=== PATIENT | male | born 1965 | race Caucasian/White ===

== ENCOUNTER → 2017-02-20 | Outpatient (CLI) | payer MEDICAID ==
--- NOTE | ~2017-02-20 | US5 ---
[facility] A Service of [facility] RADIOLOGY TEXT RESULTS PATIENT: STEPHAN VILLANUEVA JR LOCATION: [facility] : 69 UNIT #: [id number] AGE: [address]: Trent Aden MD SEX: M ORDER DR: [id number] [facility] [address] [place], [place] [address] [id number] O MR#: [id number] Acc #: [id number] NAME: STEPHAN VILLANUEVA : 1965 SEX: M STUDY DATE/TIME: 02/20/2017 7:50 UNIT: US ROOM: STUDY DESCRIPTION: US Abdominal Complete Attending Physician: Trent Aden III, M.D. Referring Physician: Trent Aden III, M.D. Ordering Physician: Trent Aden III, M.D. Primary Care Physician: Thomas Bishop M.D. MEDICAL IMAGING REPORT This report is preliminary unless electronic signature is present EXAM Abdominal ultrasound INDICATIONS Generalized abdominal pain for the past 2 months. Hepatitis C. Observation for cirrhosis and so carcinoma. PROCEDURE Jiménez-scale and Doppler imaging of the abdomen. COMPARISON: CT from 07/25/2016 FINDINGS Submitted images of abdominal aorta and inferior vena cava unremarkable. Visualized portions of pancreas unremarkable but portions of the body and tail obscured. The liver has increased echotexture. No liver mass seen on submitted images. Liver measures 16.3 cm. The right kidney measures 11.2 cm. Uncomplicated cholelithiasis. Common duct measures 3 mm. There is a 2.1 cm cyst in the left kidney. Left kidney measures 9.8 cm. The left renal cyst has some internal debris with posterior shadowing, possibly could represents some small stones. The spleen measures 9 cm. IMPRESSION 1. Increasing coarsened hepatic echotexture in keeping with the steatosis shown on the previous CT. No liver mass seen by ultrasound. 2. Uncomplicated cholelithiasis. 3. There is a 2.1 cm cystic lesion left kidney that has some internal debris and posterior parenchymal artifact possibly representing small stones. Dictated by... [facility] A Service of [facility] RADIOLOGY TEXT RESULTS PATIENT: STEPHAN VILLANUEVA JR LOCATION: [facility] : 69 UNIT #: [id number] AGE: [address]: Trent Aden MD SEX: M ORDER DR: Blue Hurtado M.D. THIS IS AN ELECTRONICALLY VERIFIED REPORT Blue Hurtado M.D. at 02/21/2017 7:11 AM MYRANDA/andreia TD: 02/20/2017 14:11 JOB #: [id number] MEDICAL IMAGING REPORT Page 1 of 1 COPY
== END | disposition home or self-care (01) ==
LOC: CGUS 07:35
DX: B18.2 Chronic viral hepatitis C (principal); K80.20 Calculus of gallbladder without cholecystitis without obstruction; N28.89 Other specified disorders of kidney and ureter
CPT/HCPCS: 76700

== ENCOUNTER 2017-04-14 23:09 | Emergency (ER) | payer MEDICAID ==
--- NOTE | ~2017-04-14 | CT71 ---
[facility] A Service of [facility] RADIOLOGY TEXT RESULTS PATIENT: STEPHAN VILLANUEVA JR LOCATION: [facility] : 69 UNIT #: [id number] AGE: [address]: Chelsie Cortez APRN SEX: M ORDER DR: [id number] [facility] [address] [place], [place] [address] [id number] E MR#: [id number] Acc #: [id number] NAME: STEPHAN VILLANUEVA JR : 1965 SEX: M STUDY DATE/TIME: 04/15/2017 3:52 UNIT: [facility] ROOM: STUDY DESCRIPTION: CT Head Wo Contrast Attending Physician: Chelsie Cortez A.P.R.N. Ordering Physician: Chelsie Cortez A.P.R.N. Primary Care Physician: Thomas Bishop M.D. MEDICAL IMAGING REPORT This report is preliminary unless electronic signature is present EXAM CT head, noncontrast, 04/15/2017. HISTORY 51-year-old male in the ED complaining of headache and weakness after a fall [address] examination of the head was performed without IV contrast. This CT exam was performed with one or more of the following radiation dose reduction techniques: automatic exposure control, adjustment of mA and/or kV according to patient size, and iterative reconstruction. FINDINGS No acute intracranial abnormality is identified. No evidence of intracranial hemorrhage, mass, mass effect, cerebral edema or hydrocephalus. IMPRESSION Negative head CT examination. Dictated by... Juan Carlos Kilgore M.D. THIS IS AN ELECTRONICALLY VERIFIED REPORT Juan Carlos Kilgore M.D. at 04/15/2017 9:54 PM RGW/jarethw TD: 04/15/2017 14:17 [facility] A Service of [facility] RADIOLOGY TEXT RESULTS PATIENT: STEPHAN VILLANUEVA JR LOCATION: [facility] : 69 UNIT #: [id number] AGE: [address]: Chelsie Cortez APRN SEX: M ORDER DR: JOB #: [id number] MEDICAL IMAGING REPORT Page 1 of 1 COPY
--- NOTE | ~2017-04-14 | CR173 ---
[facility] A Service of [facility] & [facility] RADIOLOGY TEXT RESULTS PATIENT: STEPHAN VILLANUEVA JR LOCATION: [facility] : 69 UNIT #: [id number] AGE: [address]: Chelsie Cortez APRN SEX: M ORDER DR: [id number] [facility] [address] [place], [place] [address] [id number] E MR#: [id number] Acc #: [id number] NAME: STEPHAN VILLANUEVA JR : 1965 SEX: M STUDY DATE/TIME: 04/15/2017 2:59 UNIT: [facility] ROOM: STUDY DESCRIPTION: CR Knee 3 Views Rt Attending Physician: Chelsie Cortez A.P.R.N. Ordering Physician: Chelsie Cortez A.P.R.N. Primary Care Physician: Thomas Bishop M.D. MEDICAL IMAGING REPORT This report is preliminary unless electronic signature is present EXAM Right knee, 04/15/2017. HISTORY 51-year-old male in the ED complaining of right knee pain after a fall 2 days ago. TECHNIQUE Three-view right knee series. FINDINGS The examination is negative. No fracture, dislocation, arthropathy, or other osseous abnormality. No visible joint effusion. IMPRESSION Negative right knee series. Dictated by... Juan Carlos Kilgore M.D. THIS IS AN ELECTRONICALLY VERIFIED REPORT Juan Carlos Kilgore M.D. at 04/15/2017 9:54 PM SANDRAW/shana TD: 04/15/2017 13:55 JOB #: [id number] MEDICAL IMAGING REPORT Page 1 of 1 COPY
--- NOTE | ~2017-04-14 | EKG ---
PATIENT: STEPHAN VILLANUEVA UNIT #: [id number] Ventricular Rate: 57 BPM Atrial Rate: 57 BPM P-R Interval: 182 ms QRS Duration: 84 ms Q-T Interval: 420 ms QTC Calculation(Bezet): 408 ms P [place]: 67 degrees Calculated R [place]: 68 degrees Calculated T [place]: 68 degrees Diagnosis Line: Sinus bradycardia Diagnosis Line: Early repolarization Diagnosis Line: Otherwise normal ECG Diagnosis Line: Diagnosis Line: Confirmed by MINNIE DOMINGUEZ MD ([id number]) on Diagnosis Line: 04/15/2017 2:03:09 PM INTERPRETING MD: DINA
[2017-04-15 03:23] LABS: BASOPHIL% 0.5 % (0-2.5); EOSINOPHIL# 0.2 X10e3 (0-0.7); EOSINOPHIL% 3.7 % (0.0-7.0); HEMOGLOBIN 16.2 gm/dL (13.0-16.0); LYMPHOCYTE# 2.4 X10e3 (1.0-3.5); MEAN CELL VOLUME 95.1 FL (83-96); MEAN CORPUSCULAR HEMOGLOBIN 32.2 PG (28-34); MEAN CORPUSCULAR HGB CONC 33.8 g/dL (30-36); MEAN PLATELET VOLUME 8.8 FL (6.5-11.5); MONOCYTE# 0.5 X10e3 (0-1.0); NEUTROPHIL# 1.5 X10e3 (1.5-7.1); NEUTROPHIL% 32.8 % (40-75); PLATELET COUNT 173 X10e3 (140-420); RED BLOOD COUNT 5.05 X10e (3.90-5.60); RED CELL DISTRIBUTION WIDTH 12.6 % (11.0-15.5); WHITE BLOOD COUNT 4.6 X10e3 (4.0-10.5)
[2017-04-15 03:27] LABS: DIFF IND YES
[2017-04-15 03:45] LABS: PARTIAL THROMBOPLASTIN TIME 29.6 SECONDS (23.5-31.3); PROTHROMBIN TIME (PATIENT) 10.7 SECONDS (9.6-11.5)
[2017-04-15 03:46] LABS: ALBUMIN SERUM 3.9 g/dL (3.5-5.0); BILIRUBIN, DIRECT 0.2 mg/dL (0.0-0.2); BILIRUBIN,INDIRECT 0.4 mg/dL (0.0-0.9); BILIRUBIN,TOTAL 0.6 mg/dL (0.2-2.0); CALCIUM SERUM 8.6 mg/dL (8.4-10.2); PROTEIN TOTAL SERUM 7.5 g/dL (6.0-8.3)
[2017-04-15 03:53] LABS: URINE SOURCE CLEAN CATCH
[2017-04-15 04:00] LABS: URINE APPEARANCE CLEAR; URINE BILIRUBIN NEG (NEG); URINE BLOOD NEG (NEG); URINE COLOR YELLOW; URINE GLUCOSE NEG (NEG); URINE KETONE NEG (NEG); URINE LEUKOCYTE ESTERASE NEG (NEG); URINE NITRATE NEG (NEG); URINE PH 5.5 (5-8); URINE PROTEIN NEG (NEG); URINE SPECIFIC GRAVITY 1.017 (1.003-1.035)
[2017-04-15 04:04] LABS: CULTURE INDICATED? NO
[2017-04-15 04:20] LABS: DIFFERENTIAL COMMENT FEWATYPLYMPHS; PLATELET ESTIMATE NORMAL (NORMAL)
== END 2017-04-15 06:10 | disposition home or self-care (01) ==
LOC: CED 23:09
PROVIDERS: Nurse Practitioner
DX: S80.01XA Contusion of right knee, initial encounter (principal); F10.129 Alcohol abuse with intoxication, unspecified; F17.210 Nicotine dependence, cigarettes, uncomplicated; Z88.0 Allergy status to penicillin; W18.30XA Fall on same level, unspecified, initial encounter; Y93.01 Activity, walking, marching and hiking; Y92.410 Unspecified street and highway as the place of occurrence of the external cause
CPT/HCPCS: 29530; 36415; 70450; 73562; 80048; 80076; 81003; 82150; 83690; 85025; 85610; 85730; 93005; 96360; 99284; G0480

== ENCOUNTER → 2017-08-01 | Outpatient (CLI) | payer MEDICAID ==
--- NOTE | ~2017-08-01 | US5 ---
[facility] A Service of [facility] RADIOLOGY TEXT RESULTS PATIENT: STEPHAN VILLANUEVA JR LOCATION: [facility] : 69 UNIT #: [id number] AGE: [address]: Trent Aden MD SEX: M ORDER DR: [id number] [facility] [address] [place], [place] [address] [id number] O MR#: [id number] Acc #: [id number] NAME: STEPHAN VILLANUEVA : 1965 SEX: M STUDY DATE/TIME: 08/01/2017 10:14 UNIT: [facility] ROOM: STUDY DESCRIPTION: US Abdominal Complete Attending Physician: Trent Aden III, M.D. Referring Physician: Trent Aden III, M.D. Ordering Physician: Trent Aden III, M.D. Primary Care Physician: Thomas Bishop M.D. MEDICAL IMAGING REPORT This report is preliminary unless electronic signature is present EXAM Complete abdominal ultrasound 08/01/2017 HISTORY Hepatitis C virus. Abdominal pain for 5 years. No history of treatment for hepatitis. Myocardial infarction 16 years ago. COMPARISON Complete abdominal ultrasound 02/20/2017, 07/29/2016. CT abdomen and pelvis 07/25/2016. FINDINGS The abdominal aorta measures up to 2.3 cm proximal segment, 1.9 cm mid-segment, 1.8 cm mid-segment and demonstrates normal Doppler flow. Intrahepatic IVC demonstrates normal color and spectral Doppler flow. The pancreas is partially obscured by bowel gas but the visualized pancreas appears normal. No ascites is seen. Liver demonstrates a coarsened echotexture corresponding to hepatic steatosis seen on the previous CT. No focal liver lesion is identified, the liver does not appear frankly cirrhotic. The main portal vein patent is patent. Liver size is within normal limits, 16.4 cm in the long axis. Common bile duct caliber is normal, 5 mm. No intrahepatic biliary ductal dilation is seen. The right kidney measures 11.6 cm and left kidney measures 10 cm in length. The cystic lesion at the left lower renal pole measures approximately 2 cm and is unchanged from the prior examination. It continues to demonstrate some low-level internal echoes thought most likely to represent hemorrhagic or proteinaceous debris, but no definite solid nodular components are identified within this cystic lesion. No right or left hydronephrosis is identified. Spleen size is normal, 9 cm. [facility]. [facility] A Service of [facility] RADIOLOGY TEXT RESULTS PATIENT: STEPHAN VILLANUEVA JR LOCATION: [facility] : 69 UNIT #: [id number] AGE: [address]: Trent Aden MD SEX: M ORDER DR: Multiple shadowing gallstones are present without pericholecystic inflammation or cyst or biliary ductal dilation. IMPRESSION 1. Coarsened hepatic echotexture corresponds to hepatic steatosis seen on the 07/25/2016 CT. No gross cirrhotic liver morphology, and no focal liver lesion is seen. 2. No ascites. 3. Uncomplicated cholelithiasis. No abnormal biliary dilation. 4. Mildly complex 2 cm left lower renal pole cyst, without significant change from 02/20/2017. 5. Remainder of examination is within normal limits. Dictated by... Alexandra Gunderson M.D. THIS IS AN ELECTRONICALLY VERIFIED REPORT Alexandra Gunderson M.D. at 08/02/2017 8:54 AM YIFAN/shahzad TD: 08/01/2017 19:56 JOB #: [id number] MEDICAL IMAGING REPORT Page 1 of 1 COPY
== END | disposition home or self-care (01) ==
LOC: CGUS 09:50
DX: B18.2 Chronic viral hepatitis C (principal); K80.20 Calculus of gallbladder without cholecystitis without obstruction; N28.1 Cyst of kidney, acquired; R93.2 Abnormal findings on diagnostic imaging of liver and biliary tract; K76.0 Fatty (change of) liver, not elsewhere classified
CPT/HCPCS: 76700